=== PATIENT | female | born 1935 | race Caucasian/White ===

== ENCOUNTER 2022-08-25 17:33 | Observation (INO) ==
[2022-08-25 17:46] LABS: Basophils % 0.2 % (0.0-0.8); Eosinophils % 0.5 % (0.00-10.9); Hematocrit 21.9 VOL% (35.7-47.0); Immature Granulocytes % 4.5 %; Immature Granulocytes Absolute 0.28 #; Lymphocytes # 2.7 10*3/uL (1.4-4.0); Lymphocytes % 42.2 % (21.3-54.2); Mean Corpuscular HGB Conc 27.9 GM/DL (32-36); Mean Corpuscular Volume 75.8 FL (87-102); Mean Platelet Volume 9.5 FL (9.6-12.0); Monocytes # 1.3 10*3/uL (0.11-0.8); Monocytes % 20.1 % (1.7-12.7); Neutrophils % 32.5 % (38.7-73.9); Platelet Count 319 T/CUMM (130-400); Red Blood Count 2.89 MC/CUMM (3.8-5.5); Red Cell Distribution Width 18.7 % (9.3-17.3); White Blood Count 6.3 T/CUMM (4-12)
[2022-08-25 17:51] LABS: Hemoglobin 6.1 GM/DL (12.0-16.0)
[2022-08-25 18:06] LABS: Eosinophils 2 % (0-10); Lymphocytes 46 % (20-55); Total Cells Counted 100
[2022-08-25 18:07] LABS: Anisocytosis 1+; Elliptocytes Few; Hypochromia 1+; Schistocytes Few
[2022-08-25 18:08] LABS: Alanine Aminotransferase 10 U/L (13-56); Albumin 3.7 G/DL (3.4-5.0); Alkaline Phosphatase 101 U/L (45-117); Aspartate Amino Transferase < 3 U/L (0-37); Bilirubin,Total < 0.39 MG/DL (0.20-1.00); Blood Urea Nitrogen 39 MG/DL (7-18); Calcium 9.1 MG/DL (8.5-10.1); Carbon Dioxide 26 MMOL/L (21-32); Chloride 110 MMOL/L (98-107); Glucose 111 MG/DL (74-106); Osmolality,Calculated 290.3 MOS/KG (273-304); Platelet Estimate Adequate; Polychromasia Few; Potassium 4.8 MMOL/L (3.5-5.1); Sodium 141 MMOL/L (136-145); Total Protein 6.8 G/DL (6.4-8.2)
[2022-08-25 18:36] LABS: INR 0.9; PT Patient Result 10.1 SECS (10.1-12.1)
[2022-08-25 18:38] LABS: Partial Thromboplastin Time < 20.0 SECS (23.7-32.9)
[2022-08-25] MEDS ORDERED: ACETAMINOPHEN 325 MG TABLET PO PRN (20:37)
[2022-08-25] MEDS ORDERED: ONDANSETRON 4 MG/2 ML VIAL IV PRN (20:37)
[2022-08-25] MEDS ORDERED: SODIUM CHLORIDE 0.9% 1,000 ML IV PRN ×2 (20:41→20:42)
[2022-08-25] MEDS ORDERED: GABAPENTIN 100 MG CAPSULE PO SCH (21:00)
[2022-08-25] MEDS ORDERED: SIMVASTATIN 20 MG TABLET PO SCH (21:00)
[2022-08-25] MEDS ORDERED: MONTELUKAST 10 MG TABLET PO SCH (21:00)
[2022-08-25] MEDS ORDERED: DONEPEZIL 5 MG TABLET PO SCH (21:00)
[2022-08-25] MEDS ORDERED: traMADol 50 MG TABLET PO PRN (22:54)
[2022-08-26] MEDS ORDERED: LEVOTHYROXINE 175 MCG TABLET PO SCH (06:00)
[2022-08-26 07:53] LABS: Albumin 3.2 G/DL (3.4-5.0); Bilirubin,Total 0.4 MG/DL (0.20-1.00); Calcium 8.7 MG/DL (8.5-10.1); Hematocrit 25.7 VOL% (35.7-47.0); Hemoglobin 7.5 GM/DL (12.0-16.0); Osmolality,Calculated 290.1 MOS/KG (273-304); Potassium 4.8 MMOL/L (3.5-5.1); Total Protein 6.1 G/DL (6.4-8.2)
[2022-08-26 07:54] LABS: Calcium 8.7 MG/DL (8.5-10.1); Potassium 4.8 MMOL/L (3.5-5.1)
[2022-08-26] MEDS ORDERED: POTASSIUM CHLORIDE 20 MEQ TABLET PO SCH (08:00)
[2022-08-26 08:01] LABS: Basophils % 0.4 % (0.0-0.8); Eosinophils # 0.1 10*3/uL (0.0-0.87); Eosinophils % 0.9 % (0.00-10.9); Hematocrit 26.1 VOL% (35.7-47.0); Hemoglobin 7.6 GM/DL (12.0-16.0); Immature Granulocytes % 5.1 %; Immature Granulocytes Absolute 0.28 #; Lymphocytes % 36.9 % (21.3-54.2); Mean Corpuscular HGB Conc 29.1 GM/DL (32-36); Mean Corpuscular Volume 78.9 FL (87-102); Mean Platelet Volume 9.4 FL (9.6-12.0); Monocytes # 1.3 10*3/uL (0.11-0.8); Monocytes % 23.3 % (1.7-12.7); Neutrophils % 33.4 % (38.7-73.9); Platelet Count 253 T/CUMM (130-400); Red Blood Count 3.31 MC/CUMM (3.8-5.5); Red Cell Distribution Width 18.5 % (9.3-17.3); White Blood Count 5.5 T/CUMM (4-12)
[2022-08-26 08:35] LABS: Eosinophils 2 % (0-10); Hypochromia Slight; Lymphocytes 36 % (20-55); Microcytosis Slight; Platelet Estimate Adequate; Total Cells Counted 100
[2022-08-26] MEDS ORDERED: AMIODARONE 200 MG TABLET PO SCH (09:00)
[2022-08-26] MEDS ORDERED: FUROSEMIDE 20 MG TABLET PO SCH (09:00)
[2022-08-26] MEDS ORDERED: CHOLECALCIFEROL 5,000 UNIT TABLET PO SCH (09:00)
[2022-08-26] MEDS ORDERED: PANTOPRAZOLE 40 MG TABLET PO SCH (09:00)
[2022-08-26] MEDS ORDERED: FUROSEMIDE 40 MG TABLET PO SCH (09:00)
[2022-08-26] MEDS ORDERED: CYANOCOBALAMIN 1000 MCG/1 ML VIAL IM SCH (09:00)
[2022-08-26] MEDS ORDERED: NITROFURANTOIN MACROCRYSTALS 100 MG CAPSULE PO SCH (09:00)
[2022-08-26] MEDS ORDERED: ESCITALOPRAM 10 MG TABLET PO SCH (09:00)
[2022-08-26] MEDS ORDERED: MULTIVITAMIN (OCUVITE) TABLET PO SCH (09:00)
[2022-08-26 11:28] VITALS: BP 106/46
[2022-08-26] MEDS ORDERED: VERAPAMIL SR 180 MG TABLET PO SCH (21:00)
== END 2022-08-26 12:12 | disposition home or self-care (01) ==
LOC: N.ED 17:33 → N.EDINP 17:33 → N.3E 21:16
PROVIDERS: ADMIT Internal Medicine; ATTEND Internal Medicine